=== PATIENT | female | born 1970 | race Caucasian/White ===

== ENCOUNTER 2019-06-27 12:35 | Emergency (ER) | payer BC ==
[2019-06-27 13:24] LABS: BASOPHILS % (AUTO) 0.4 % (0.0-5.0); EOSINOPHILS % (AUTO) 2.8 % (0.0-8.0); HEMATOCRIT 45.5 % (36-48); LYMPHOCYTES % (AUTO) 39.9 % (21.0-51.0); MEAN CORPUSCULAR HGB CONC 33.9 g/dL (32.0-36.0); MEAN CORPUSCULAR VOLUME 88.6 fL (79-99); MONOCYTES % (AUTO) 7.9 % (3.0-13.0); NUCLEATED RED BLOOD CELLS 0.1 % (0.0-0.19); PLATELET COUNT (AUTO) 218 K/uL (130-400); RED BLOOD CELL COUNT(AUTO) 5.13 MIL/uL (4.00-5.50); RED CELL DISTRIBUTION WIDTH 14.4 % (11.0-15.5); WHITE BLOOD COUNT (AUTO) 6.9 K/uL (4.8-10.8)
[2019-06-27 13:35] LABS: CARBON DIOXIDE 32 mmol/L (21-32); CHLORIDE 105 mmol/L (101-111); CREATININE 0.9 mg/dL (0.5-1.5); GLOMERULAR FILTR. RATE CALC 71 mL/min (>60); GLUCOSE,RANDOM 85 mg/dL (70-105); POTASSIUM 4.3 mmol/L (3.5-5.1); SODIUM SERUM 142 mmol/L (136-145); UREA NITROGEN, BLOOD 16 mg/dL (7-18)
[2019-06-27 13:36] LABS: INR 0.95 (0.85-1.15); PARTIAL THROMBOPLASTIN TIME 25.4 SEC (26.3-35.5)
[2019-06-27 13:40] LABS: ALANINE AMINOTRANSFERASE 21 U/L (12-78); ALBUMIN 3.5 g/dL (3.5-5.0); AMYLASE 32 U/L (25-115); ASPARTATE AMINOTRANSFERASE 15 U/L (10-37); BILIRUBIN,TOTAL 0.4 mg/dL (0.2-1.0); CREATINE KINASE, TOTAL 35 U/L (21-232); CRP QUANTITATIVE < 2.00 mg/L (0.00-9.0); LIPASE 79 U/L (114-286); TOTAL PROTEIN, SERUM 6.9 g/dL (6.0-8.3)
[2019-06-27] MEDS ORDERED: KETOROLAC TROMETHAMINE 30MG/ML ONE (13:59)
[2019-06-27 14:10] LABS: B-TYPE NATRIURETIC PEPTIDE 24 pg/mL (0-100)
[2019-06-27 14:27] LABS: APPEARANCE,URINE Clear (CLEAR); BILIRUBIN,URINE Negative (NEGATIVE); COLOR,URINE Yellow (YELLOW); GLUCOSE, URINE (UA) Negative (NEGATIVE); KETONES,URINE Negative (NEGATIVE); LEUKOCYTE ESTERASE ,URINE Negative (NEGATIVE); NITRATE,URINE Negative (NEGATIVE); OCCULT BLOOD,URINE Negative (NEGATIVE); PH,URINE 8.5 (5.0-8.0); PROTEIN,URINE Negative (NEGATIVE)
[2019-06-27 14:35] LABS: ERYTHROCYTE SEDIMENTATION RATE 2 MM/HR (0-20)
== END 2019-06-27 15:34 | disposition home or self-care (01) ==
LOC: EDH 12:35
DX: M54.5 Low back pain (principal); R07.9 Chest pain, unspecified; Z90.710 Acquired absence of both cervix and uterus
CPT/HCPCS: 36415; 71045; 72070; 80053; 81003; 82150; 82550; 83605; 83690; 83880; 84484; 85025; 85610; 85651; 85730; 86140; 87040; 87804 ×2; 93005; 96374; 99285; J1885

== ENCOUNTER 2021-06-30 18:42 | Emergency (ER) | payer BC ==
[~2021-06-30] VITALS: Ht 172.7 cm; Wt 70.3 kg
[2021-06-30 19:12] LABS: BASOPHILS % (AUTO) 0.3 % (0.0-5.0); EOSINOPHILS % (AUTO) 1.8 % (0.0-8.0); HEMATOCRIT 40.1 % (36-48); LYMPHOCYTES % (AUTO) 34.5 % (21.0-51.0); MEAN CORPUSCULAR HEMOGLOBIN 27.6 pg (27.0-33.0); MEAN CORPUSCULAR HGB CONC 32.4 g/dL (32.0-36.0); MEAN CORPUSCULAR VOLUME 85.1 fL (79-99); MONOCYTES % (AUTO) 8.7 % (3.0-13.0); NEUTROPHILS % (AUTO) 53.8 % (40.0-77.0); PLATELET COUNT (AUTO) 236 K/uL (130-400); RED BLOOD CELL COUNT(AUTO) 4.71 MIL/uL (4.00-5.50); RED CELL DISTRIBUTION WIDTH 14.4 % (11.0-15.5); WHITE BLOOD COUNT (AUTO) 9.9 K/uL (4.8-10.8)
[2021-06-30 19:30] LABS: CREATININE 0.8 mg/dL (0.5-1.5); POTASSIUM 4.2 mmol/L (3.5-5.1)
[2021-06-30] MEDS ORDERED: 0.9%NACL 1000ML 1,000 ML IV ONE (19:30)
[2021-06-30 19:35] LABS: ALBUMIN 3.1 g/dL (3.5-5.0); BILIRUBIN,TOTAL 0.1 mg/dL (0.2-1.0); TOTAL PROTEIN, SERUM 6.7 g/dL (6.0-8.3)
[2021-06-30 22:15] VITALS: BP 121/82
== END 2021-06-30 22:16 | disposition home or self-care (01) ==
LOC: EDH 18:42
DX: U07.1 COVID-19 (principal); E86.9 Volume depletion, unspecified; G89.29 Other chronic pain; K21.9 Gastro-esophageal reflux disease without esophagitis; M54.9 Dorsalgia, unspecified
CPT/HCPCS: 36415; 80053; 85025; 93005; 96360; 99284; J7030